=== PATIENT | female | born 1945 | race Caucasian/White ===

== ENCOUNTER 2019-09-11 11:29 | Inpatient (IN) | payer MEDICARE ==
[~2019-09-11] VITALS: Ht 157.5 cm; Wt 65.1 kg
--- NOTE | 2019-09-11 11:43 | NUR ---
SPOKE WITH MAYA AT DR HONG'S OFFICE CONSULT INFO PROVIDED.
--- NOTE | 2019-09-11 11:47 | NUR ---
DR HONG PHONED. INFORMATION GIVEN.
[2019-09-11 11:50] VITALS: BP 192/98
--- NOTE | 2019-09-11 11:50 | NUR ---
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
[2019-09-11 12:30] LABS: HEMATOCRIT 44.8 % (37.0-47.0); IMMATURE GRANULOCYTES 0.8 % (0.0-5.0); MEAN CELL VOLUME 86.2 fL CALC (80.0-100.0); MEAN CORPUSCULAR HGB 26.9 pG CALC (26.0-32.0); MEAN CORPUSCULAR HGB CONC 31.3 g/L CALC (32.0-36.0); NEUT# 16.45 thou/uL (2.00-7.15); RED BLOOD COUNT 5.2 mill/uL (4.20-5.60); RED CELL DISTRI WIDTH 13.6 % (11.5-15.5)
--- NOTE | 2019-09-11 12:45 | NUR ---
awake in bed; medicated with morphine as prescribed; fall precautions reviewed; iv patent; call light within reach; will continue to monitor
[2019-09-11 13:19] LABS: URINE BILIRUBIN - DIPSTICK NEGATIVE (NEGATIVE); URINE BLOOD DIPSTICK TRACE-INTACT (NEGATIVE); URINE CLARITY CLEAR; URINE COLOR YELLOW; URINE GLUCOSE - DIPSTICK NEGATIVE (NEGATIVE); URINE KETONE NEGATIVE (NEGATIVE); URINE LEUK ESTERASE NEGATIVE (Negative); URINE NITRITE - DIPSTICK NEGATIVE (Negative); URINE PH 5.5 (4.5-8.0); URINE PROTEIN - DIPSTICK 100 mg/dL (NEG-TRACE); URINE UROBILINOGEN - DIPSTICK 0.2 E.U./dL (0.2)
[2019-09-11 13:20] LABS: URINE RBC 0-2 RBC/hpf (0-5); URINE WBC 0-2 WBC/hpf (0-5)
[2019-09-11 13:36] LABS: CREATININE 4.4 mg/dL (0.5-1.0); POTASSIUM 5.3 mmol/l (3.5-5.1)
--- NOTE | 2019-09-11 13:50 | NUR ---
clinical pharmacy coordinator present at bedside for med rec
[2019-09-11] MEDS ORDERED: SYMBICORT1 AE1 IN (14:15)
[2019-09-11] MEDS ORDERED: SPIRIVA RE2.5 MCG/AC IN (14:15)
[2019-09-11] MEDS ORDERED: PROAIR HFA IN (14:17)
[2019-09-11] MEDS ORDERED: PREDNISONE10 MG PO (14:17)
--- NOTE | 2019-09-11 14:17 | NUR ---
awake in bed resting on left side; admits to "some pain"; deny need for additional pain meds; iv intact; offers no other complaints; call light within reach; will continue to monitor
[2019-09-11] MEDS ORDERED: SINGULAIR10 MG PO (14:19)
[2019-09-11] MEDS ORDERED: FLONASE AL50 MCG/ACT (14:19)
--- NOTE | 2019-09-11 14:38 | NUR ---
Dr Deluna present at bedside to assess pt and discuss plan of care
--- NOTE | 2019-09-11 16:01 | NUR ---
resting in bed with eyes closed; no apparent distress noted; easily aroused; complaints of pain; will medicate; iv intact; call light within reach; will continue to monitor
[2019-09-11 16:40] VITALS: BP 172/86
--- NOTE | 2019-09-11 18:55 | NUR ---
PATIENT LAYS SUPINE. ALERT AND ORIENTED X4. ON ROOM AIR, SNO SOB NOTED. HEAD TO TOE NURSING ASSESSMENT PERFORMED. C/O RLQ AND R FLANK PAIN RATES 6, EDUCATED ON LPAIN MEDICATION AND PRN ORDERS, WILL MEDICATE SOON TIME AGAIN. HAS A MOIST POWER AND RECOVERY SUPERINTENDENT COUGH. RH IV 22 G IS INTACT FLUSHES PROPERLY, NO SIGNS OF REDNESS OR TENDERNESS, PATIENT C/O THAT IT HURTS WHEN IT IS BEING FLUSHED, AGREES TO HAVE ANOTHER IV PLACED. ABLE TO STAND UP W/O DIFFICULTY. KNOWS SHE IS GOING TO HAVE A PROCEDURE TOMORROW, REPORTED ANESTHESIA HAS ALREADY BEEN UP TO SEE HER. MALENA FOLEY ON. EXPLAINED POC FOR TONIGHT. SELF REPOSITIONS. CALL LIGHT WITHIN REACH. CUP OF ICE PROVIDED PER REQUEST.
--- NOTE | 2019-09-11 19:15 | NUR ---
LFA 20 G IV PLACED WITH NO DIFFICULTY. PATIENT TOLERATED WELL. DISCUSSED MEDICATIONS SHE WILL BE RECEIVING TONIGHT, PATIENT AGREES. CALL LIGHT WITHIN REACH.
[2019-09-11 20:00] VITALS: BP 137/77
--- NOTE | 2019-09-11 20:25 | NUR ---
PAIN MEDICATION GIVEN PER REQUEST, IV FLUIDS STARTED WELL. PT LAYS ON HER L-SIDE, REPORTS SHE FEELS IT TAKE PRESSURE OFF OF HER R-SIDE AND MAKES IT LESS PAINFUL. ANOTHER PILLOW PROVIDED. CALL LIGHT WITHIN REACH.
--- NOTE | 2019-09-11 21:20 | NUR ---
STANDBY ASSISTED PT TO BS. NO DIFFICULTY, NO GAIT DISTURBANCE, REPORTS PAIN DOWN TO 2. NOW SITS, CALL LIGHT WITHIN REACH.
--- NOTE | 2019-09-11 22:00 | NUR ---
PATIENT LAYS ON HER SIDE. NO SIGNS OF ACUTE DISTRESS SHOWN. LAYS WITH EYES CLOSED. NO NEEDS AT THIS TIME. CALL LIGHT WITHIN REACH.
[2019-09-12] VITALS (17 sets, daily range): BP systolic 112–174; BP diastolic 55–81
--- NOTE | 2019-09-12 00:07 | NUR ---
DR HONG CALLED AND GAVE NEW ORDERS FOR THE MORNING: EKG, NPO AFTER MIDNIGHT, AND HE WILL SEE HER IN THE MORNING TO CONSENT AND TALK TO HER.
--- NOTE | 2019-09-12 00:30 | NUR ---
PAIN MEDICATION PROVIDED PER REQUEST, PATIENT AWARE SHE IS NPO AFTER MIDNIGHT, PROVIDED MOTH SWABS TO HELP WITH DRY MOUTH. NO OTHER NEEDS AT THIS TIME. CALL LIGHT WITHIN REACH.
--- NOTE | 2019-09-12 02:00 | NUR ---
PATIENT RESTS WIH EYES CLOSE ON HER LEFT SIDE. NO NEEDS AT THIS TIME. CALL LIGHT WITHIN REACH.
--- NOTE | 2019-09-12 04:50 | NUR ---
PATIENT WAS GIVEN PAIN MEDICATION, AGREES TO GET WASHED UP WHEN PAIN MEDICATION KICKS IN. PATIENT REPORTS LAYING ON HER LEFT SIDE HELPS EASE OFF PAIN BUT WHEN SHE MOVES IT HURTS. NO OTHER NEEDS AT THIS MOMENT. CALL LIGHT WITHIN REACH.
[2019-09-12 05:21] LABS: HEMATOCRIT 42.4 % (37.0-47.0); HEMOGLOBIN 13.1 g/dl (12.0-16.0); IMMATURE GRANULOCYTES 0.6 % (0.0-5.0); MEAN CELL VOLUME 88.3 fL CALC (80.0-100.0); MEAN CORPUSCULAR HGB 27.3 pG CALC (26.0-32.0); MEAN CORPUSCULAR HGB CONC 30.9 g/L CALC (32.0-36.0); NEUT# 10.41 thou/uL (2.00-7.15); RED BLOOD COUNT 4.8 mill/uL (4.20-5.60); RED CELL DISTRI WIDTH 13.6 % (11.5-15.5)
[2019-09-12 05:48] LABS: ALBUMIN 3.5 g/dL (3.2-5.0); BILIRUBIN, TOTAL 0.4 mg/dL (0.0-1.4); POTASSIUM 4.9 mmol/l (3.5-5.1); TOTAL PROTEIN 7.1 g/dL (6.3-8.2)
--- NOTE | 2019-09-12 06:00 | NUR ---
PATIENT WAS WASHED UP, LINENS CHANGED. DENTURES OFF. JEWELRY OFF, 4 YELLOW RINGS, 2 EARRINGS (1 SET), 1 YELLOW WATCH, 1 YELLOW ANKLET, 1 YELLOW NECKLACE WITH A YELLOW CHARM RUFFIN ALL PLACED IN A ZIP LOCK BAG, CLOSED AND PLACED IN A BLACK BAG PER PATIENT REQUEST, PT REFUSED OFFER TO BE PLACED IN SAFE, WITNESS NURSE TRACEY.
--- NOTE | 2019-09-12 07:15 | NUR ---
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
--- NOTE | 2019-09-12 07:51 | NUR ---
Dr Deluna notified of serum glocuse of 65 this am; aware pt is npo; orders received
--- NOTE | 2019-09-12 08:00 | NUR ---
resting with eyes closed; no apparent distress noted; offers no complaints; vital signs stable; call light within reach; will continue to monitor
--- NOTE | 2019-09-12 08:49 | NUR ---
pt transferred to OR via bed in stable condition with Eileen
--- NOTE | 2019-09-12 10:05 | NUR ---
pt in OR
--- NOTE | 2019-09-12 12:36 | NUR ---
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
--- NOTE | 2019-09-12 13:00 | NUR ---
awake in bed; sister and law present at bedside; pt offers no complaints of pain; iv intact and patent; will continue to monitor
--- NOTE | 2019-09-12 13:26 | NUR ---
pt assist to bsc; voided 200cc blood tinged urine; will continue to monitor
--- NOTE | 2019-09-12 14:00 | NUR ---
resting in bed with eyes closed; no appaent distress noted; resp even and unlabored; iv intact and patent; no redness or edema noted at site; scds intact; o2 per nc; call light within reach; will continue to monitor
--- NOTE | 2019-09-12 16:00 | NUR ---
PT FOUND ON FLOOR AT THIS TIME. CLINICAL SUPPORT TEAM CALLED. PT LAYING FACE DOWN. STABILIZATION OF NECK THEN C COLLARED AND PLACED ON BACK BOARD. TRANSPORTED PT TO RADIOLOGY FOR CT SCANS AND XRAYS.
--- NOTE | 2019-09-12 16:10 | NUR ---
VITAL SIGNS OBTAINED HR 84 BP 180/100
--- NOTE | 2019-09-12 16:54 | NUR ---
pt received back from radiology department in stable condition; remain flat on back board with hard c-collar until imaging reports are received; pt noted guarding left shoulder; denies pain; placed on bedpan with pericare for urinary incont; clinical writer offered to notify family/ pt refused; will continue to monitor
--- NOTE | 2019-09-12 17:41 | NUR ---
DR RUBIO CALLED WITH CRITICAL RESULTS ON PATIENT. CONNECTED TO ANTONIO HAWKINS
--- NOTE | 2019-09-12 17:48 | NUR ---
RECEIVED ORDERS FROM ANTONIO HAWKINS TO TRANSFER PATIENT TO [facility] UNDER DR GIBBS SERVICES
--- NOTE | 2019-09-12 17:50 | NUR ---
PHONED [facility] TRANSFER [facility]. TRANSFER ARRANGEMENTS MADE WITH AAMIR
--- NOTE | 2019-09-12 17:55 | NUR ---
RICHARD Diaz called; verbal orders received to proceed with administration on morphine; radiology report/ fracture/ intracranial bleed has been explained; pt aware of pending transfer to [facility]
--- NOTE | 2019-09-12 18:03 | NUR ---
Yue Zapata called per pt request; Yue informed of pt fall and critical radiology results; Yue informed pt will be transferred to [facility]
--- NOTE | 2019-09-12 18:05 | NUR ---
[facility] PLACED ON STANDBY AT THIS TIME SPOKE WITH LOIDA. CONSENT OBTAINED FROM PATIENT.
--- NOTE | 2019-09-12 18:17 | NUR ---
DR HONG NOTIFIED OF TRANSFER.
--- NOTE | 2019-09-12 18:23 | NUR ---
MANAGEMENT NOTIFIED OF PATIENT FALL AND TRANSFER STATUS.
--- NOTE | 2019-09-12 18:36 | NUR ---
RECEIVED CALL FROM AAMIR AT [facility] PT TO GO TO ROOM 561 REPORT TO BE CALLED TO [phone]
--- NOTE | 2019-09-12 18:39 | NUR ---
ZANE LITTLE [facility] CALLED AND WILL LAUNCH BAYFLIGHT DUE TO A DELAY ON THEIR PART
--- NOTE | 2019-09-12 18:41 | NUR ---
ZANE FROM [facility] CALLED AND STATED THAT BAYFLIGHT IS UNAVAILABLE AND WILL LAUNCH [facility] 5 IT BE ABOUT 45 MINUTES UNTIL ARRIVAL.
--- NOTE | 2019-09-12 19:18 | NUR ---
REPORT CALLED TO RIRI AT [facility] ICU.
--- NOTE | 2019-09-12 19:30 | NUR ---
DR GIBBS CALLED REGARDING PATIENT'S BP IS ELEVATED AND SHE IS TACHYCARDIC [address] GIBBS GAVE NEW ORDERS, FAXING STAT TO [place].
--- NOTE | 2019-09-12 19:31 | NUR ---
FAMILY IS AT BEDSIDE. PATIENT IS AWAKE, ALERT, CONVERSATES AND JOKES. N ACUTE DISTRESS SHOWN. NECK BRACE IS INTACT.
--- NOTE | 2019-09-12 19:48 | NUR ---
PATIENT WAS ASSISTED WITH BEDPAN, SHE IS ABLE TO PARTICIPATE, DOES NOT COMPLAIN OF PAIN. SISTER AT BEDSIDE.
--- NOTE | 2019-09-12 20:06 | NUR ---
Discharge instructions given. Patient verbalizes understanding of same. Discharged in stable condition via Medical Transport to *Other with staff. All belongings sent with pt. PATIENT WAS TRANSFERRED VIA [facility] TO [facility]. REPORT WAS GIVEN TO [facility] STAFF.
--- NOTE | 2019-09-12 20:24 | NUR ---
CALLED AND SPOKE TO NURSE RIRI AT [facility] ICU TO NOTIFY THAT RADIOLOGIST RECOMMENDED TO REPEAT CT OF THE BRAIN, RIRI REPORTED THEY ARE GOING TO SCAN HER WHEN SHE GETS TO [facility], ALSO NOTIFIED RIRI I GAVE MEDICATION X1 IV FOR PATIENT'S ELEVATED BP.
== END 2019-09-12 20:06 | disposition short-term general hospital (02) | DRG 657 ==
LOC: ICU 11:29
PROVIDERS: Urology; ADMIT Internal Medicine; ATTEND Internal Medicine
PROC: 0TB38ZX Excision of Right Kidney Pelvis, Via Natural or Artificial Opening Endoscopic, Diagnostic (ICD-10-PCS; principal; 2019-09-12)
PROC: 0T768DZ Dilation of Right Ureter with Intraluminal Device, Via Natural or Artificial Opening Endoscopic (ICD-10-PCS; 2019-09-12)
PROC: BT1DZZZ Fluoroscopy of Right Kidney, Ureter and Bladder (ICD-10-PCS; 2019-09-12)
DX: C65.1 Malignant neoplasm of right renal pelvis (principal); N17.9 Acute kidney failure, unspecified; S42.252A Displaced fracture of greater tuberosity of left humerus, initial encounter for closed fracture; S06.300A Unspecified focal traumatic brain injury without loss of consciousness, initial encounter; N28.1 Cyst of kidney, acquired; R31.9 Hematuria, unspecified; I12.9 Hypertensive chronic kidney disease with stage 1 through stage 4 chronic kidney disease, or unspecified chronic kidney disease; N18.9 Chronic kidney disease, unspecified; J44.9 Chronic obstructive pulmonary disease, unspecified; M19.90 Unspecified osteoarthritis, unspecified site; D72.829 Elevated white blood cell count, unspecified; T38.0X5A Adverse effect of glucocorticoids and synthetic analogues, initial encounter; W19.XXXA Unspecified fall, initial encounter; Y92.230 Patient room in hospital as the place of occurrence of the external cause; Z87.891 Personal history of nicotine dependence
CPT/HCPCS: C1769; Q9967

== ENCOUNTER 2022-01-11 15:32 | Emergency (ER) | payer MEDICARE ==
[2022-01-11] VITALS (19 sets, daily range): BP systolic 113–160; BP diastolic 39–91
[~2022-01-11] VITALS: Ht 157.5 cm; Wt 59.0 kg
[~2022-01-11 15:32] MED LIST: FLONASE AL50 MCG/ACT; PREDNISONE10 MG PO; PROAIR HFA IN; SINGULAIR10 MG PO; SPIRIVA RE2.5 MCG/AC IN; SYMBICORT1 AE1 IN
[2022-01-11 18:22] LABS: ALKALINE PHOSPHATASE 213 u/l (38-126); BUN 59 mg/dL (8-23); BUN/CREATININE RATIO 19 (12-20 (CALC)); CARBON DIOXIDE 19 mmol/l (22-30); CHLORIDE 107 mmol/l (95-108); CREATININE 3.1 mg/dL (0.5-1.0); GFR 15 ML/MIN (>=60 (CALC)); GFR FOR AFR.AMER. 18 ML/MIN (>=60 (CALC)); SGOT/AST 43 u/l (9-36); SODIUM 136 mmol/l (137-146); TOTAL PROTEIN 8.1 g/dL (6.3-8.2)
[2022-01-11 18:26] LABS: ACT PARTIAL THROMBO TIME 22.6 SECONDS (20.0-32.5); PROTHROMBIN TIME 10.3 SECONDS (9.0-12.5)
[2022-01-11 18:27] LABS: ANION GAP 15 (6-22 (CALC)); BILIRUBIN, TOTAL 1.3 mg/dL (0.0-1.4); POTASSIUM 5.4 mmol/l (3.5-5.1)
[2022-01-11 18:43] LABS: BASO% 1 % (0-3); EOS% 4 % (0-8); LYMPH% 36 % (15-41); MONO% 9 % (2-13); NEUT# 6.31 thou/uL (2.00-7.15); NEUT% 49 % (42-76); PLATELET COUNT 249 thou/uL (130-400); RED BLOOD COUNT 0.24 mill/uL (4.20-5.60)
[2022-01-11 19:04] LABS: HEMOGLOBIN 5.7 g/dl (12.0-16.0)
== END 2022-01-11 20:00 | disposition short-term general hospital (02) ==
LOC: ED 15:32
PROVIDERS: Nurse Practitioner
PROC: 30233N1 Transfusion of Nonautologous Red Blood Cells into Peripheral Vein, Percutaneous Approach (ICD-10-PCS; principal; 2022-01-11)
DX: D64.9 Anemia, unspecified (principal); C34.90 Malignant neoplasm of unspecified part of unspecified bronchus or lung; C22.9 Malignant neoplasm of liver, not specified as primary or secondary; J44.9 Chronic obstructive pulmonary disease, unspecified; I10 Essential (primary) hypertension
CPT/HCPCS: P9016

== ENCOUNTER 2023-03-19 09:44 | Emergency (ER) | payer MEDICARE ==
[~2023-03-19] VITALS: Ht 152.4 cm; Wt 51.8 kg
[2023-03-19] VITALS (11 sets, daily range): BP systolic 144–172; BP diastolic 73–116
== END 2023-03-19 12:32 | disposition home or self-care (01) ==
LOC: ED 09:44
DX: S51.811A Laceration without foreign body of right forearm, initial encounter (principal); M25.521 Pain in right elbow; I12.9 Hypertensive chronic kidney disease with stage 1 through stage 4 chronic kidney disease, or unspecified chronic kidney disease; N18.4 Chronic kidney disease, stage 4 (severe); J44.9 Chronic obstructive pulmonary disease, unspecified; W01.0XXA Fall on same level from slipping, tripping and stumbling without subsequent striking against object, initial encounter

== ENCOUNTER 2023-12-01 18:23 | Emergency (ER) | payer MEDICARE ==
[~2023-12-01] VITALS: Ht 152.4 cm; Wt 52.0 kg
[2023-12-01 19:10] VITALS: BP 131/62
[2023-12-01 19:30] VITALS: BP 129/64
[2023-12-01 20:00] VITALS: BP 132/61
[2023-12-01 20:30] VITALS: BP 113/63
[2023-12-01] MEDS ORDERED: ALBUTEROL108 MCG/AC (20:52)
[2023-12-01] MEDS ORDERED: AMLODIPINE BESYL5 MG PO (20:53)
[2023-12-01] MEDS ORDERED: XANAX0.25 MG PO (20:53)
[2023-12-01] MEDS ORDERED: VITAMIN D1.25 MG PO (20:54)
[2023-12-01] MEDS ORDERED: FOLIC ACID1 MG PO (20:55)
[2023-12-01] MEDS ORDERED: PROCHLORPERAZINE5 M1 PO (20:56)
[2023-12-01] MEDS ORDERED: SODIUM BICARBI650 MG PO (20:57)
[2023-12-01 21:00] VITALS: BP 138/65
[2023-12-01 21:03] VITALS: BP 138/65
[2023-12-01] MEDS ORDERED: BREZTRI AEROSPH1 AER (21:03)
[2023-12-01] MEDS ORDERED: VITAMIN E IM (21:05)
[2023-12-01] MEDS ORDERED: XPHOZAH30 MG PO (21:06)
== END 2023-12-01 21:23 | disposition home or self-care (01) ==
LOC: ED 18:23
PROC: 3E1B78Z Irrigation of Ear using Irrigating Substance, Via Natural or Artificial Opening (ICD-10-PCS; principal; 2023-12-01)
PROC: 3E1B78Z Irrigation of Ear using Irrigating Substance, Via Natural or Artificial Opening (ICD-10-PCS; 2023-12-01)
DX: H61.23 Impacted cerumen, bilateral (principal); I10 Essential (primary) hypertension; J44.9 Chronic obstructive pulmonary disease, unspecified; C34.90 Malignant neoplasm of unspecified part of unspecified bronchus or lung; C22.9 Malignant neoplasm of liver, not specified as primary or secondary

== ENCOUNTER 2024-04-24 11:28 | Emergency (ER) | payer MEDICARE ==
[2024-04-24] VITALS (16 sets, daily range): BP systolic 87–124; BP diastolic 43–69
[~2024-04-24] VITALS: Ht 152.4 cm; Wt 53.0 kg
[~2024-04-24 11:28] MED LIST changes: +ALBUTEROL108 MCG/AC; +AMLODIPINE BESYL5 MG PO; +BREZTRI AEROSPH1 AER; +FOLIC ACID1 MG PO; +PROCHLORPERAZINE5 M1 PO; +SODIUM BICARBI650 MG PO; +VITAMIN D1.25 MG PO; +VITAMIN E IM; +XANAX0.25 MG PO; +XPHOZAH30 MG PO
[2024-04-24] MEDS ORDERED: SODIUM CHLORIDE 0.9% 1,000 ML IV ONE ×2 (11:55)
[2024-04-24 12:19] LABS: BASO% 0.1 % (0-3); EOS% 0.1 % (0-8); HEMATOCRIT 35.1 % (37.0-47.0); HEMOGLOBIN 11.4 g/dl (12.0-16.0); IMMATURE GRANULOCYTES 2.8 % (0.0-5.0); LYMPH% 9.8 % (15-41); MEAN CELL VOLUME 89.5 fL CALC (80.0-100.0); MEAN CORPUSCULAR HGB 29.1 pG CALC (26.0-32.0); MEAN CORPUSCULAR HGB CONC 32.5 g/dL CAL (32.0-36.0); MONO% 7.8 % (2-13); NEUT# 12.84 thou/uL (2.00-7.15); NEUT% 79.4 % (42-76); RED BLOOD COUNT 3.92 mill/uL (4.20-5.60); RED CELL DISTRI WIDTH 16.4 % (11.5-15.5)
[2024-04-24 12:41] LABS: BILIRUBIN, TOTAL 0.4 mg/dL (0.02-1.3); CREATININE 4.8 mg/dL (0.5-1.0); POTASSIUM 3.4 mmol/l (3.5-5.1)
[2024-04-24 12:44] LABS: ALBUMIN 2.2 g/dL (3.2-5.0); TOTAL PROTEIN 5.4 g/dL (6.3-8.2)
[2024-04-24] MEDS ORDERED: cefTRIAXone SODIUM 2 GM in SODIUM CHLORIDE 0.9% 100 ML IV ONE (12:45)
== END 2024-04-24 15:04 | disposition short-term general hospital (02) ==
LOC: ED 11:28
PROVIDERS: Family Medicine
DX: R53.1 Weakness (principal); D64.9 Anemia, unspecified; I95.9 Hypotension, unspecified; I12.9 Hypertensive chronic kidney disease with stage 1 through stage 4 chronic kidney disease, or unspecified chronic kidney disease; N18.4 Chronic kidney disease, stage 4 (severe); J44.9 Chronic obstructive pulmonary disease, unspecified; Z99.2 Dependence on renal dialysis; Z96.0 Presence of urogenital implants; Z85.118 Personal history of other malignant neoplasm of bronchus and lung; Z85.05 Personal history of malignant neoplasm of liver